=== PATIENT | male | born 1945 | race Caucasian/White ===

== ENCOUNTER 2017-07-23 00:58 | Inpatient (IN) | payer OTHER, MEDICARE ==
[2017-07-23] VITALS (46 sets, daily range): BP systolic 103–166; BP diastolic 41–75
[~2017-07-23] VITALS: Ht 188 cm; Wt 103.1 kg
[~2017-07-23 00:58] MED LIST: ALLO100T PO; AMLO10TA2 PO; CLOP75TA22 PO; FLUO40CA9 PO; GABA300C10 PO; GLIP10TA13 PO; GUAI12003 PO; HYDR25TA9 PO; INSU100C SQ; LOSA50TA6 PO; METO50TA2 PO; NITR0.4T8 SL; OMEP20TA PO; PRAV40TA2 PO; ZOLP10TA5 PO
[2017-07-23] MEDS ORDERED: HEPARIN ONE (06:31)
[2017-07-23] MEDS ORDERED: VERSED ONE ×2 (06:32→10:19)
[2017-07-23] MEDS ORDERED: SUBLIMAZE ONE (06:32)
[2017-07-23] MEDS ORDERED: XYLOCAINE ONE (06:32)
[2017-07-23] MEDS ORDERED: NS 1000ML 1,000 ML IV SCH (07:00)
[2017-07-23] MEDS ORDERED: VALIUM PO ONE (07:00)
[2017-07-23] MEDS ORDERED: PHENERGAN PO ONE (07:00)
--- NOTE | 2017-07-23 07:27 | DIREP ---
PROCEDURE:CHEST 1 VIEW COMPARISON:None. INDICATIONS:PRE OP HEART CATH THIS AM FINDINGS: LUNGS/PLEURA:No confluent area of consolidation. No evidence of pleural effusion. VASCULATURE:Within normal limits. CARDIAC:Previous CABG. The cardiac silhouette is prominent, but not definitely enlarged, given AP technique. CASANDRA/MEDIASTINUM:No visible mass or adenopathy. BONES:No acute fracture. OTHER:No additional findings. CONCLUSION: 1. No acute cardiopulmonary changes. Dictated by: Mateusz Ta M.D. on 07/23/2017 at 07:25 AM
--- NOTE | 2017-07-23 10:50 | NUR ---
ARRIVAL PATIENT ARRIVED TO UNIT VIA STRETCHER ON PORTABLE O2 AT 2L/MIN, CONNECTED TO PORTABLE AED/TELEMONITOR. NO DISTRESS NOTED. PATIENT DROWSY. PATIENT TRANSFERRED INTO HOSP BED WITH 4 PERSON ASSIST. PATIENT CONNECTED TO BEDSIDE MINDRAY AND WALL O2 AT2L/MIN. REPORT RECEIVED FROM MICHELLE BOWLING. RIGHT GROIN SOFT, NO SWELLING OR HEMATOMA NOTED. DRESSING C/D/I. SPOUSE AT BEDSIDE.
[2017-07-23] MEDS ORDERED: ASPIRIN ONE (11:30)
--- NOTE | 2017-07-23 13:06 | NUR ---
MRI PATIENT DOWN TO RADIOLOGY FOR MRI. PATIENT CONTINUES TO BE DROWSY. AROUSES TO TACTILE STIMULI, ABLE TO FOLLOW COMMAND.
--- NOTE | 2017-07-23 13:52 | NUR ---
PATIENT BACK FROM MRI. PATIENT DROWSY, AROUSES TO VERBAL STIMULI. PATIENT TRANSFERRED BACK INTO BED WITH 3 PERSON ASSIST. PATIENT TOLERATED WELL. PATIENT RECONNECTED TO [facility]. RIGHT GROIN HEART CATH SITE SOFT, NO SWELLING OR HEMATOMA NOTED. DRESSING C/D/I.
--- NOTE | 2017-07-23 15:11 | DIREP ---
PROCEDURE:MRI - BRAIN WITHOUT CONTRAST COMPARISON:None. INDICATIONS:OE.REASON. Carotid stenosis. TECHNIQUE:A variety of imaging planes and parameters were utilized for visualization of suspected pathology in the brain. Images were performed without gadolinium contrast.. FINDINGS: VENTRICLES: There is mild prominence of the ventricles consistent with age-appropriate involutional changes. CEREBRUM: There is confluent increased FLAIR and T2 signal involving the periventricular and deep white matter of the supratentorial brain consistent with moderately extensive leukoaraiosis. Localized volume loss in the left caudate head is consistent with a chronic lacunar infarct. CEREBELLUM: Negative. BRAINSTEM: Wallerian degeneration is noted in the genesis extending along the left cerebral peduncle. BASAL CISTERNS: Negative. HEMORRHAGE: No. MASS LESION: No. ACUTE INFARCT: No. SKULL: Negative. SINUSES: Negative. OTHER: Mild motion artifact. CONCLUSION: 1. Age-appropriate involutional changes and moderately severe leukoaraiosis. 2. Chronic lacunar infarct in the left caudate head and right cerebellum. 3. No acute hemorrhage, acute infarct, or mass lesions. Dictated by: Artemio Escobedo MD on 07/23/2017 at 02:51 PM
--- NOTE | 2017-07-23 18:40 | NUR ---
SBAR report received from AM shift. Introduced self, assumed care. Denies pain or needs at this time.
--- NOTE | 2017-07-23 19:19 | CCRH ---
DATE OF SERVICE: 07/23/2017 PRECATHETERIZATION DIAGNOSES: 1. Abnormal myocardial perfusion scan. 2. Coronary artery disease. 3. Post bypass surgery in 1996 with QUEEN graft to LAD and QUEEN graft to first diagonal branch and vein graft of circumflex to very likely obtuse marginal branch. 4. History of congestive heart failure. 5. History of bradycardia. 6. History of crescendo angina. POSTCATHETERIZATION DIAGNOSES: Left main with 80% proximal stenosis and distal 99% subtotal occlusion. LAD 100% occluded. The QUEEN graft to the LAD is fully patent, filling the whole LAD system, and LAD, itself, beyond the insertion of the QUEEN, has diffuse atherosclerosis with about 60% to 70% stenosis in the distal portion of the LAD. The JAS graft is attached to The first diagonal branch and is a very tortuous graft and fills the diagonal branch, which has got diffuse atherosclerosis. The circumflex is 100% occluded. The saphenous vein graft to the first obtuse marginal branch is 100% occluded. The right coronary artery is 100% occluded. The left ventricle is mildly dilated with good wall contractility, ejection fraction 50%. Left carotid with ostial intrathoracic 99% subtotal eccentric stenosis with good flow into left carotid; right carotid visualized at the point of origin from the transverse aorta and it appears to be fully patent. ANESTHESIA: 2% lidocaine PREOPERATIVE MEDICATIONS: Phenergan 50 mg p.o., Valium 2.5 mg p.o., Versed 3 mg IV, fentanyl 37.5 mcg IV. ANTICOAGULATION: Heparin 2000 units intra-arterially, 2000 units in flush solution, 1000 units in dye solution. DYE: Omnipaque. Total amount: 200 mL CATHETERS: JL4 6-Cuban, JR4 6-Cuban, 6-Cuban angled pigtail catheter, intermammary catheter, 6-Cuban for JAS cannulation, and aortic root cineangiography. NARRATION OF PROCEDURE: Under local anesthesia, the right femoral artery was punctured percutaneously and a right coronary catheter was initially utilized for selective cannulation of the saphenous vein graft to the obtuse marginal branch and selective cannulation of right coronary artery, and this catheter was then utilized for QUEEN graft cineangiography in the [place] and MARTINEZ projections followed by an exchange of JL4, 6-Cuban left Nuno coronary catheter and left coronary arteriography was performed in the [place] and MARTINEZ projections. This catheter was then exchanged with an exchange wire with QUEEN graft intermammary grafts catheter which was utilized for right internal mammary graft cineangiography and right internal carotid cineangiography was performed also in the AP projection. This catheter was then exchanged with a 6-Cuban angled pigtail catheter, which was navigated across the aortic valve and the gradient was measured and left ventriculography was performed in a 30-degree MARTINEZ view with 30 mL of Isovue at 12 mL for second. Aortic root cineangiography was performed with 45 mL of Isovue at 14 mL per second at 600 PSI in the [place] view. Angio-Seal was deployed and hemostasis was achieved. HEMODYNAMICS: LVEDP 20 mm. LV pressure 156/20. Femoral artery pressure 156/60. No gradient across the aorta on pullback of the central catheter. FINAL CONCLUSION: 1. Left main: 100% occluded distally. LAD: 100% occluded. QUEEN to LAD: Patent. The LAD itself has got diffuse atherosclerosis. The JAS graft to the first diagonal branch is patent. Circumflex: 100% occluded. Saphenous vein graft to the first obtuse marginal branch: 100% occluded. Right coronary artery: 100% occluded. Left ventricle: Enlarged, ejection fraction 50%. Right carotid ostial: 99% subtotal occlusive lesion. Left carotid: Patent. RECOMMENDATIONS: At this time in view of the critical right internal carotid intrathoracic ostial 99% stenosis, stenting of the right coronary artery is advisable. We will contact Dr. Kiser. We will get a MRI of the head and bilateral carotid Doppler, start him on aspirin and Plavix, and optimization of medical therapy. Aliyahmicdanette Shen MD DR: JAYA/zakia JOB# [id number]
--- NOTE | 2017-07-23 19:19 | NUR ---
US at bedside for bilateral carotid doppler.
--- NOTE | 2017-07-23 22:54 | DIREP ---
PROCEDURE:CAROTID ULTRASOUND COMPARISON:None. INDICATIONS:Stenosis, CP MRI Brain 07/23/17 TECHNIQUE:Sonographic evaluation of carotid and vertebral arteries was performed together with grayscale, color-flow, and spectral analysis. FINDINGS: RIGHT CCA:67.24 cm/s RIGHT ICA: PROX:127.09 cm/s MID:138.23 cm/s DIST:113.15 cm/s RIGHT ECA:104.79 cm/s RIGHT ICA/CC:2.06 RIGHT VERTEBRAL:36.93 cm/s IMAGES: There are mild calcified shadowing plaque seen involving the proximal and far wall of the carotid bulb. LEFT CCA:68.83 cm/s LEFT ICA: PROX:103.68 cm/s MID:93.83 cm/s DIST:87.91 cm/s LEFT ECA:74 cm/s LEFT ICA/CCA:1.51 LEFT VERTEBRAL:52.43 cm/s IMAGES:There is mild calcified plaque seen involving the proximal wall of the carotid bulb. CONCLUSION: No evidence of hemodynamically significant stenosis. Right proximal and mid ICA stenosis is estimated to be between 50-69%. Left ICA stenosis is estimated to be less than or equal to 49%. *J Ultrasound Med 2005; 24:8563-6142 Dictated by: Ramses Reyes MD on 07/23/2017 at 10:47 PM
[2017-07-24] VITALS (27 sets, daily range): BP systolic 107–161; BP diastolic 54–98
[2017-07-24] MEDS ORDERED: ASPI81TA9 PO (06:04)
[2017-07-24] MEDS ORDERED: ATOR40TA PO (06:04)
--- NOTE | 2017-07-24 06:57 | NUR ---
DISCHARGE INSTRUCTION GIVEN TO PATIENT AND SPOUSE. BOTH VOICED UNDERSTANDING. IV ACCESS PULLED, IV CATH TIP INTACT. BAND AID APPLIED TO SITE. PATIENT AMBULATED TO PRIVATE VEHICLE ACCOMPANIED BY NURSE. NO DISTRESS NOTED. PATIENT TO GO TO DR. ODEN APPOINTMENT THIS AM.
--- NOTE | 2017-07-24 07:49 | HPH ---
ADMIT DATE: 07/23/2017 POST-CATH ADMISSION TO INTENSIVE CARE UNIT HISTORY OF PRESENT ILLNESS: The patient is a 72-year-old white male who has history of CAD and post bypass surgery in 1986, who came in with a history of dyspnea on exertion, chest pain, palpitations, syncope, loss of consciousness, with several episodes of syncope in the past, and had to lean against a wall to prevent a fall. He had a catheterization done in [place] in December 2016, and the results are not available. He is on multiple medications. He had a perfusion study done, which was abnormal, with multisegmental ischemic substrate and hence was admitted for a cardiac catheterization, which was done on July 23, 2017. His heart catheterization showed that he had a patent QUEEN graft to the LAD and a JAS graft to which appears to be a ramus intermedius or one of the diagonal branches of the left coronary artery. The left coronary artery itself was totally occluded with a critical 90%. The left main was with no LAD or circumflex being visualized. The right coronary artery was 100% occluded. There was a vein graft, which probably was going to the obtuse marginal branch, which was occluded. A stub of the vein graft to the right coronary artery was also occluded. During cannulation of the JAS, very critical, intrathoracic 95% to 99% ostial common carotid stenosis was identified, and I felt that this may be the reason for him having global hemispherical ischemia and him having blackout spells. His LV function was fairly intact. Hence, in view of this critical lesion, I admitted him for further evaluation and to make arrangements for stenting of the right common carotid artery, and, this lesion is not amenable to surgical intervention in the neck because it is in the thorax. I talked with Dr. Kiser and he agreed with the same and the patient was observed and kept on Plavix and aspirin. Post catheterization, he did have sensorium changes, probably related to medications given during the catheterization, but he was hard to wake up and hence there was a concern of a TIA, although later on the patient woke up and had a full neurological recovery. ALLERGIES: NONE KNOWN. MEDICATIONS: Ambien 10 mg once a day, amlodipine 10 mg once a day, allopurinol 100 mg daily, gabapentin 600 mg at bedtime, hydrochlorothiazide 12.5 mg once a day, fluoxetine 20 mg once a day, aspirin 81 mg once a day, omeprazole 20 mg twice a day, glipizide 10 mg once a day, folic acid 800 mcg once a day, losartan 50 mg once a day, metoprolol 50 mg twice a day, Crestor 40 mg once a day. PAST MEDICAL HISTORY: History of syncope, mild aortic stenosis, coronary stenting post bypass surgery several years ago, peripheral arterial disease, bradycardia, chronic stable angina, chronic systolic heart failure, type 2 diabetes mellitus. No smoking in 1965. He uses alcohol socially. No IV use in the past. History of diabetes since 1985. He has been on insulin. Recently, he had an NE in 2005 and he had a bypass in 2005. Dyslipidemia. A Heart catheterization was done at the [facility]; he had his surgery done in [facility]. History of colonoscopy in 2014. Degenerative joint disease, left big toe pain that needed some joint replacement. History of significant degenerative joint disease. Post-cholecystectomy in 2010. Post-bypass in 1986. Hearing loss, ear infections. Urinary urgency, frequency, nocturia. Dizziness, lightheadedness, visual disturbances, indigestion, nausea, shortness of breath, poor effort tolerance. History of obstructive sleep apnea, wears CPAP. PHYSICAL EXAMINATION: GENERAL APPEARANCE: On examination, he was obese, he was not arousable after initial sedation given for cardiac catheterization. VITAL SIGNS: Blood pressure was 130/70 mmHg, pulse was 60/50 to 50-60, respirations were 18, and height 6 feet and 1 inch tall, 232 pounds, BMI 30.6. HEAD AND NECK: Unremarkable. Bilateral faint carotid bruits are audible. LUNGS: Clear. HEART: Heart sounds were normal. Systolic murmur, grade 2/6 heard at the left sternal border and aortic A1 area. ABDOMEN: Unremarkable. EXTREMITIES: Mild dependent edema. NEUROLOGIC: Sensorium: The mental status was not clear because he was under the influence of drugs. Whether he was having sensorium changes is unclear at the present time, this is a post-cath situation. LABORATORY DATA: His labs were showing a creatinine of 1.1. His chest x-ray showed no acute changes. His ultrasound showed no evidence of any hemodynamically significant stenosis of the right proximal and mid internal carotid arteries, and estimated 50% to 60% stenosis of the left internal carotid, which was estimated at 40% stenosis, but I had seen a critical lesion on angiography. A brain MRI was done after admission. Age-equivalent changes were documented. Chronic lacunar infarct in the left caudate head and right-sided carotid bruit was noted. No acute hemorrhage, no acute infarct was documented. His EKG showed regular sinus rhythm, sinus bradycardia, left ventricular hypertrophy, diffuse ST-T wave changes. Creatinine was 1.1. IMPRESSION: Coronary artery disease post bypass, status critical common carotid ostial ominous-looking stenosis, history of TIA, history of syncope, intact LV systolic function, patent left internal and right internal mammary grafts. The vein grafts were all occluded. The left internal mammary going to the LAD and the right internal mammary going to the ramus intermedius or could be a diagonal branch. Occluded vein graft to the circumflex vessel and occluded vein graft to the right coronary artery. Both right and left coronary arteries were completely occluded. The [place] vessels were occluded. Intact LV systolic function. Hypertension, hypertensive heart disease. Obstructive sleep apnea manifestation. RECOMMENDATIONS: At this time, we will watch overnight and send him to Dr. Kiser for arrangements for stenting of the common carotid vessel in the intrathoracic portion, which is an ostial lesion. Laxmichand MD ARLETTE Shen: JAYA/zakia JOB# [id number] BRAVO
--- NOTE | 2017-07-24 08:35 | DSH ---
DATE OF DISCHARGE: 07/24/2017 FINAL DIAGNOSES: Critical ostial 95% to 99% right common carotid ostial stenosis at the point of origin from the innominate vessel. History of recurrent syncope, global cerebral ischemia, lacunar infarct in the left hemisphere and in the cerebellum, old infarct, no overt motor deficit. Coronary artery disease, post-bypass surgery, patent QUEEN and JAS grafts, all vein grafts occluded, crow coronary arteries, intact LV systolic function, left ventricular hypertrophy no hemodynamically significant aortic stenosis, hypertension, hypertensive heart disease, obstructive sleep apnea manifestation, post-bypass status, insulin-dependent diabetes mellitus. Please refer to my history and physical to the point of my impression. HISTORY: The patient is a 72-year-old white male who came in with a history of recurrent syncope, chest pain, shortness of breath, and had a systolic murmur and faint bilateral carotid bruits, and the Doppler study was unremarkable for any significant critical stenosis in both carotid arteries in the neck. He had a positive perfusion study and underwent a cardiac catheterization which showed patent 2 mammary grafts, occluded vein grafts, occluded crow vessels, left ventricular hypertrophy, intact LV systolic function, no aortic stenosis. In view of critical ostial common carotid lesion at the point of origin from the innominate vessel, the patient was observed, and he was under the influence of medications and was hard to arouse and hence the possibility of global ischemia was considered since he has had recurrent syncopal episodes. He later woke up and has had full neurologic recovery and arrangements were made for him to go on July 24, 2017 at 9:[address] Kiser for a possible stenting of the common carotid at the point of origin from the innominate vessel. His medications are aspirin 162 mg once a day, Lipitor 40 mg once a day, Plavix 75 mg once a day, allopurinol 100 mg once a day, amlodipine 10 mg once a day, fluoxetine 40 mg once a day, gabapentin 600 mg at bedtime, glipizide 10 mg once a day, hydrochlorothiazide 12.5 mg once a day. He is on Humalog insulin sliding scale coverage and he is on losartan 50 mg once a day, metoprolol 25 mg twice a day, nitroglycerin on an p.r.n. basis, omeprazole 20 mg 2 tablets daily, Ambien 10 mg once a day. I stopped his pravastatin and actually he should be on Crestor 40 mg once a day. A disk was made and he will see Dr. Kiser at 9 o'clock on July 24, 2017. Laxmichand MD Ac DR: JAYA/zakia JOB# [id number] BRAVO
[2017-07-24] MEDS ORDERED: PLAVIX PO SCH (09:00)
[2017-07-24] MEDS ORDERED: ASPIRIN EC PO SCH (09:00)
== END 2017-07-24 07:02 | disposition home or self-care (01) | DRG 287 ==
LOC: SURG 00:58 → ICU 10:50
PROVIDERS: ADMIT Specialist; ATTEND Specialist
PROC: 4A023N7 Measurement of Cardiac Sampling and Pressure, Left Heart, Percutaneous Approach (ICD-10-PCS; principal; 2017-07-23)
PROC: B2111ZZ Fluoroscopy of Multiple Coronary Arteries using Low Osmolar Contrast (ICD-10-PCS; 2017-07-23)
PROC: B2151ZZ Fluoroscopy of Left Heart using Low Osmolar Contrast (ICD-10-PCS; 2017-07-23)
PROC: B2131ZZ Fluoroscopy of Multiple Coronary Artery Bypass Grafts using Low Osmolar Contrast (ICD-10-PCS; 2017-07-23)
DX: I25.718 Atherosclerosis of autologous vein coronary artery bypass graft(s) with other forms of angina pectoris (principal); I11.0 Hypertensive heart disease with heart failure; I50.22 Chronic systolic (congestive) heart failure; E11.51 Type 2 diabetes mellitus with diabetic peripheral angiopathy without gangrene; I25.82 Chronic total occlusion of coronary artery; I35.0 Nonrheumatic aortic (valve) stenosis; H91.90 Unspecified hearing loss, unspecified ear; E78.5 Hyperlipidemia, unspecified; I65.21 Occlusion and stenosis of right carotid artery; G47.33 Obstructive sleep apnea (adult) (pediatric); Z95.1 Presence of aortocoronary bypass graft; Z86.73 Personal history of transient ischemic attack (TIA), and cerebral infarction without residual deficits; I25.2 Old myocardial infarction; Z79.02 Long term (current) use of antithrombotics/antiplatelets; Z79.4 Long term (current) use of insulin; Z79.82 Long term (current) use of aspirin; Z79.899 Other long term (current) drug therapy; Z90.49 Acquired absence of other specified parts of digestive tract; Z95.5 Presence of coronary angioplasty implant and graft
CPT/HCPCS: 36415; 70551; 71010; 82948; 85610; 93459; 93880; 99152; 99153; C1894; J1644; J2250; J3010; J7030; Q9967; 93567; C1769